=== PATIENT | male | born 1965 | race Caucasian/White ===

== ENCOUNTER 2020-03-15 14:28 | Inpatient (IN) | payer OTHER, SELFPAY ==
[2020-03-15 14:38] VITALS: BMI 25.8
[2020-03-15 14:43] VITALS: BP 135/74; PULSE 79; RESP 16; TEMP 36.8; O2SAT 96
--- NOTE | 2020-03-15 14:43 | ECG_ITS ---
[facility] Test Date: 2020-03-15 Pat Name: Isreal Sage Department: Room: Gender: Male System Configuration Specialist: : [id number] Requested By: Jeanie Mason Order Number: [id number] Wagoner MD: Gary Landin M.D. Measurements Intervals [place] Rate: 75 P: 12 SD: 142 QRS: 77 QRSD: 88 T: 70 QT: 363 QTc: 406 Interpretive Statements SINUS RHYTHM No previous ECG available for comparison Electronically Signed On 03-16-2020 19:56:34 CDT by Gary Landin M.D. [id number]
[2020-03-15 15:30] LABS: Amphetamines Screen Urine Positive (Negative); Barbiturates Screen Urine Negative (Negative); Benzodiazepines Screen Urine Negative (Negative); Cocaine Screen Urine Negative (Negative); Opiate Screen Urine Negative (Negative); PCP Screen Urine Negative (Negative); THC Screen Urine Negative (Negative)
[2020-03-15 15:33] LABS: Bilirubin Urine Neg (NEGATIVE); Blood Urine 2+ (Negative); Glucose Urine UA Norm (Normal); Ketones Urine Negative (Negative); Leukocyte Esterase Urine Negative (Negative); Nitrate Urine Negative (Negative); Protein Urine Neg (Negative); Urine Appearance Clear (CLEAR); Urine Color Yellow (Yellow); Urobilinogen Urine Norm (Negative); pH Urine 5 (5-7)
[2020-03-15 15:34] LABS: Bacteria Urine 1+; Mucus Urine 2+; RBC Urine 0-4 /hpf (0-2); Squamous Epithelial Cell Urine 0-4 (0-5)
[2020-03-15 15:35] LABS: Add Urine Culture? No; Calcium Oxalate Crystals Urine 0-4 /hpf; Hyaline Casts Urine 0-4
--- NOTE | 2020-03-15 15:59 | PC.NURSE ---
pt states now he thinks he is having suicidal thoughts no plan taken to room 9 undressed and sitter with pt
--- NOTE | 2020-03-15 16:08 | ED_ITS ---
HPI - Psych General: Chief Complaint: Psychiatric Symptoms Stated Complaint: mhe, detox Time Seen by Provider: 03/15/20 15:57 Source: patient Mode of arrival: ambulatory Limitations: no limitations History of Present Illness: HPI Narrative: Mr. Sage is a 54-year-old male comes in complaining of feeling suicidal. He states that he has a problem with methamphetamines and he needs help getting off. He has had thoughts about wanting to kill himself and thought of several different ways he can do so. He wants to go to our neuropsychiatric unit so he can get the help that he needs. Review of Systems Const: Denies: fever(s), chills, body aches, fatigue, malaise or diaphoresis Eyes: Denies: change in vision, blurry vision, blind spots, photophobia, eye discharge or eye redness ENMT: Denies: throat pain, odynophagia, hoarseness, swelling of lips/tongue, oral sores, ear or mastoid pain, ear discharge, change in hearing or nasal discharge Card: Denies: chest pain, palpitations, irregular heart rhythm, edema, lightheadedness, syncope, pre-syncope, dyspnea on exertion or orthopnea Resp: Denies: dyspnea, productive cough, non-productive cough, wheezing, hemoptysis or chest congestion GI: Denies: abdominal pain, nausea, vomiting, hematemesis, coffee ground emesis, heartburn, diarrhea, constipation, GI cramping, hematochezia or melena : Denies: flank pain, dysuria, urinary frequency, urinary urgency or hematuria Musc: Denies: neck pain, back pain, extremity pain, extremity swelling, joint pain, joint swelling, joint redness, joint warmth or joint stiffness Skin/Breast: Denies: rash, pruritus, erythema, skin tenderness or jaundice Neuro: Denies: headache(s), numbness in extremities, weakness in extremities, sensory changes, lack of coordination, difficulty walking, dizziness, vertigo, confusion, Slurred speech present or seizure-like activity Mustapha/Lymph: Denies: easy bruising, easy bleeding, petechiae, purpura or enlarged lymph nodes All/Imm: Denies: urticaria, throat swelling, tongue swelling, facial swelling or acute wheezing Physical Exam Const: COMMON NORMALS: no acute distress, patient oriented x3, no limitations, healthy appearing and well nourished GENERAL APPEARANCE: cooperative, well kempt and well developed HENMT: COMMON NORMALS: normocephalic, atraumatic, external ears normal, EAC's normal and Normal external nose present HEAD & SCALP: normal to inspection, normocephalic and atraumatic FACE & SINUS: normal facial exam and face symmetric NOSE: Normal external nose present and Normal nares present EXTERNAL EAR: Yes external ears normal EXTERNAL AUDITORY CANAL: EAC's normal MOUTH: Normal oral and palatal mucosa present, lip normal and tongue normal Eye: COMMON NORMALS: Equal, round and reactive pupils present and conjunctivae normal GENERAL EYE: appearance normal, both eyes and all related structures ALIGNMENT: Yes alignment normal PERIORBITAL: periorbital findings normal EYELID: eyelids normal CONJUNCTIVA: Yes conjunctivae normal SCLERA: sclerae normal PUPIL: Yes Equal, round and reactive pupils present Neck/C-Spine: COMMON NORMALS: full ROM, no lymphadenopathy, supple, no m eningeal signs and no JVD GENERAL: Yes normal visual inspection and Yes trachea midline Chest: COMMONS NORMALS: normal inspection of the chest and normal palpation of entire chest wall Resp: COMMON NORMALS: normal respiratory effort, No retractions and No use of accessory muscles EFFORT & INSPECTION: Yes able to speak in complete sentences and Yes symmetric chest movement AUSCULTATION: no crackles, no rales, no rhonchi and no wheezes Cardio: COMMON NORMALS: no JVD, regular rate, regular rhythm, S1 normal heart sound present and S2 normal heart sound present RATE: regular rate RHYTHM: regular rhythm HEART SOUNDS: S1 normal heart sound present, S2 normal heart sound present, no click, no gallops, no murmurs, no rubs and abnormal split S2 GI: COMMON NORMALS: Soft to palpation and No hepatosplenomegaly present PALPATION: Yes Soft to palpation, No Tenderness to palpation present (GI), No Guarding due to palpation present (GI), No Rigid due to palpation, Yes No hepatosplenomegaly present, No Hernia present, No Palpable mass present and No Pulsatile mass present : COMMON NORMALS: Yes no CVA tenderness BLADDER/KIDNEY EXAM: Yes no CVA tenderness Back/Pelvis: COMMON NORMALS: no CVA tenderness, thoracic and lumbar spine normal to inspection, no thoracic nor lumbar tenderness and thoraco-lumbar ROM normal Extremity: COMMON NORMALS: normal to inspection, full ROM, capillary refill normal, no joint enlargement, no clubbing, cyanosis or edema and no calf tend erness Neuro: COMMON NORMALS: patient oriented x3, CN's II-XII intact bilaterally, moves all extremities, no focal motor deficits and no sensory deficits noted MENINGEAL SIGNS: Yes no meningeal signs SPEECH: speech normal Psych: COMMON NORMALS: mental status grossly normal, Normal thought process present, cooperative, normal affect, speech normal and activity/motor behavior normal APPEARANCE: Yes well kempt SPEECH: Yes normal speech THOUGHT PROCESS: Normal thought process present Skin: COMMON NORMALS: no rashes or lesions noted, turgor normal, no jaundice, no petechiae and no mottling GENERAL SKIN EXAM: no rashes or lesions noted and turgor normal MDM - Psych MDM Narrative: Medical decision making narrative: The case was reviewed with Dr. Nichols, he agrees to admit the patient for suicidal ideation. Lab Data: Attestation: I reviewed the patient's lab results. Labs: Lab Results 03/15/20 03/15/20 Range/Units 14:56 14:56 Urine Color Yellow (Yellow) Urine Appearance Clear (CLEAR) Urine pH 5 (5-7) Ur Specific Gravit y 1.030 (1.005-1.030) Urine Protein Neg (Negative) Urine Glucose (UA) Norm (Normal) Urine Ketones Negative (Negative) Urine Blood 2+ H (Negative) Urine Nitrate Negative (Negative) Urine Bilirubin Neg (NEGATIVE) Urine Urobilinogen Norm (Negative) mg/dL Ur Leukocyte Roz ase Negative (Negative) Urine RBC 0-4 H (0-2) /hpf Urine WBC 5-10 H (0-5) /hpf Ur Squamous Epith Cells 0-4 H (0-5) Calcium Oxalate Cr ystal 0-4 H /hpf Urine Bacteria 1+ H (NONE) Hyaline Casts 0-4 H Urine Mucus 2+ Urine Opiates Scre en Negative (Negative) ng/mL Ur Barbiturates Sc reen Negative (Negative) ng/mL Ur Phencyclidine S crn Negative (Negative) ng/mL Ur Amphetamines Sc reen Positive H (Negative) ng/mL U Benzodiazepines Scrn Negative (Negative) ng/mL Urine Cocaine Scre en Negative (Negative) ng/mL U Marijuana (THC) Screen Negative (Negative) ng/mL EKG Data^: EKG 1: Attestation: I personally reviewed and interpreted this EKG as follows: EKG interpretation date: 03/15/20 EKG interpretation time: 16:16 Interpretation: NSR @ 75, NAD Discharge Plan Discharge Patient Disposition: Admitted As Inpatient Clinical Impression: Suicidal ideation Condition: Stable Coding Level of Care Code ED Instructor Military Science for Chg Fwd Exam Comprehensive
[2020-03-15 16:16] LABS: Basophils # 0.1 10^3/uL (0.0-0.1); Basophils % 0.7 %; Eosinophils # 0.1 10^3/uL (0.0-0.8); Eosinophils % 0.9 %; Hematocrit 45.2 % (42.0-52.0); Hemoglobin 14.7 g/dL (11.7-16.6); Lymphocytes # 1.1 10^3/uL (0.8-4.8); Lymphocytes % 12.1 %; Mean Corpuscular HGB Conc 32.5 g/dL (30.0-36.0); Mean Corpuscular Hemoglobin 29.8 pg (28.0-34.0); Mean Corpuscular Volume 91.7 fL (80-94); Mean Platelet Volume 10.3 fL (7.4-10.4); Monocytes # 0.7 10^3/uL (0.2-0.9); Neutrophils # 7.1 10^3/uL (1.8-7.7); Neutrophils % 78.1 %; Nucleated Red Blood Cells % 0 %; Platelet Count 321 10^3/cmm (130-400); Red Blood Count 4.93 10^6/uL (4.1-5.3); Red Cell Distribution Width 13.8 % (12.1-15.1)
[2020-03-15 16:25] LABS: Ketone (Acetest) Serum Negative (Negative)
[2020-03-15 16:27] LABS: INR 0.95 (0.8-1.2)
[2020-03-15] MEDS: LORazepam 2 mg Tablet PO (16:28)
[2020-03-15 16:41] LABS: Lithium 0.1 mmol/L (0.6-1.2)
[2020-03-15 17:02] LABS: Acetaminophen < 5.0 ug/mL (10-30); Alanine Aminotransferase 21 U/L (0-41); Albumin Level 4.8 g/dL (3.5-5.2); Alcohol Level < 10 mg/dL (0-10); Alkaline Phosphatase 86 IU/L (40-130); Anion Gap 14.6 (5-19); Aspartate Amino Transferase 28 U/L (0-40); Blood Urea Nitrogen 19 mg/dL (6-20); Carbon Dioxide 29 mmol/L (22-29); Chloride 102 mmol/L (98-107); Globulin 2.7 g/dL (1.3-4.6); Glomerular Filtration Rate 69.2 mL/min (90-130); Glucose 80 mg/dL (65-115); Magnesium 2.1 mg/dL (1.7-2.3); Osmolality Calculated 287 mOsm/kg (285-295); Potassium 4.6 mmol/L (3.5-5.1); Salicylate < 0.3 mg/dL (3-10); Sodium 141 mmol/L (136-145); Thyroid Stimulating Hormone 0.53 uIU/mL (0.27-4.20); Total Bilirubin 0.5 mg/dL (0.15-1.2); Total Protein 7.5 g/dL (6.6-8.7)
[2020-03-15 17:03] LABS: Carbamazepine Tegretol < 2.0 ug/mL (4.0-12.0); Phenytoin Dilantin < 0.8 ug/mL (10-20); Valproic Acid Level < 2.8 ug/mL (50-100)
[2020-03-15 17:04] LABS: Creatine Phosphokinase 322 U/L (39-308)
[2020-03-15 17:21] VITALS: BP 140/80; PULSE 85; O2SAT 97
[2020-03-15 17:51] VITALS: BP 141/84; PULSE 72; RESP 18; TEMP 36.8; O2SAT 96
[2020-03-15 20:29] VITALS: BP 108/71; PULSE 62; RESP 15; TEMP 36.6; O2SAT 99
[2020-03-16 06:00] VITALS: BP 117/73; PULSE 51; RESP 17; TEMP 36.4; O2SAT 97
--- NOTE | 2020-03-16 10:14 | P.HP_ITS ---
Providers/Chief Complaint Admitting Physician: Vishal Nichols MD Chief Complaint: mhe, detox HPI NPU History of Present Illness Isreal Sage is a 54 year old male who presented to the emergency room reporting that his methamphetamine addiction has gotten out of control, and that if he does not do something soon, he is going to . He does not want to but he was feeling like that was one of his only options. He wanted to be admitted and was seeking help with his depression and addiction. He was admitted to the neuro-psychiatric unit for definitive treatment of those issues. He reports he has no psychiatric history. His was struggling with addiction for much of their marriage and he was a street laced, never got into trouble kind of vaelrio. He says that she was spiking his food or drinks or whatever with methamphetamine and at one point he acknowledged that he had been feeling good, and she told him that she had been doing that. He did not feel addicted and he felt better so he started messing around with it. This was at about age 49. He reports he had energy and felt vibrant. He said a couple months later in the month it had taken ahold of him, but he has been on and off of the meth since then. He reports that he will have a couple months of sobriety and then fall back in. He has figured all this time over the last five years that he would be able to kick it on his own, but he has not. He says that he is retired from the [employer] and had never been in trouble. He says he dips maybe one and a half cans a week. He has alcohol very rarely. He does not smoke marijuana. He does not mess with cocaine, opiates, or any other drugs. He has never been to a rehab, never had a DUI. He reports that he has never made a suicide attempt, but he says that he was contemplating and planning how to kill himself because he says he just cannot live like this. He cannot believe that his life has been reduced to chasing this. He reports that he is depressed, feels hopeless, helpless, and worthless but he feels like most of that is just the fact that he cannot stop. We discussed the risks, benefits, and alternatives of getting a trial of Naltrexone and he understood and agreed to proceed as is documented in this note. PSYCHIATRIC HISTORY: As above. SUBSTANCE ABUSE HISTORY: As above. FAMILY HISTORY: He denies mental health or addiction issues on either side of the family or any suicide attempts or completions on either side. DEVELOPMENTAL HISTORY: He denies any issues with his mom?s or delivery of him. He reports he learned to walk and talk and met his developmental milestones on time. He reports that he did not need speech therapy, learning support, emotional support, or special education classes. PSYCHOSOCIAL HISTORY: He reports his mother and father were together when he was born, and they had him and his younger brother together. He reports that when he was 5 years old, they . His mom has not had any children with anyone else. His dad has one or two kids, but he reports he is tight-lipped about it. He reports his grandparents often raised him because his mom was working hard, and his dad was in the and was in and out. At age 5 he was gone. He reports his childhood was unremarkable and denied any emotional, physical, or sexual abuse. He graduated from high school. He has a Bachelor of Science, a Master?s degree, and has some of his doctorate course work done. He is a heterosexual. His longest relationship was seven years. He has been four times, three times. He has a 20 year old son in [place], whom he does not have much contact with, if at all. He joined the [employer] when he was 15 and did at least twenty years. He was at 16 [employer] and had his final ranking was an E7. He believes in God, but he has been struggling with his lutheran recently. 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 He lives in a house with his . LEGAL HISTORY: He reports he has been in half-way a couple of times, longest time was six months, and that was mostly for revocations. MEDICAL HISTORY: He reports that he has some right lower sided pain and he does have a history of spontaneous pneumothoraces. Meds NPU Home Medications Medication Instructions Recorded Confirmed Last Taken Type No Known Home Medications 03/15/20 03/15/20 Unknown History Allergies Allergy/AdvReac Type Severity Reaction Status Date / Time No Known Allergies Allergy Verified 03/15/20 14:45 Mental Status Exam MSE Comments: This is a well-nourished, well-developed, white male, with adequate dress, grooming, and eye contact. No abnormal movements except for mild psychomotor retardation. Cooperative with exam in no acute distress. Speech was decreased rate and volume. Mood described as feeling desperate; affect congruent. Thought process, organized. Thought content: patient denied any suicidal or homicidal ideation, there were no delusions reported or noted, patient denied any auditory or visual hallucinations. Attention, concentration, and memory appear intact but were not formally tested. He is alert and oriented times three. Insight and judgment are good. Vitals/I&O/Wt Last Vital Signs Temp 97.6 F 03/16/20 06:00 Pulse 51 L 03/16/20 06:00 Resp 17 03/16/20 06:00 BP 117/73 03/16/20 06:00 Pulse Ox 97 03/16/20 06:00 Data NPU : 03/15/20 16:00 03/15/20 16:00 A&P Assessment and plan (1) Suicidal ideation: Status: Acute (2) Methamphetamine dependence: Status: Acute (3) Depression: Status: Acute Additional A&P Information This is a 54 year old, white male, with no significant history of mental health, but a history of worsening methamphetamine addiction over the last five years with no genetic loading for mental health or addiction issues, who presents desperately wanting to get engaged in treatment and was open to starting some medication to maybe help with the craving. Continue current medication except: Start Revia 50 mg po qam. Encourage individual, group, and milieu therapy. Continue q 15-minute checks for safety. Assist patient in finding sober living treatment at the highest level, to which he is willing to commit. Involuntary Hold Information 96 Hour Hold: 96 Hour Involuntary Admission: No Attestations NPU Medical Necessity Statement*: Inpatient hospitalization is medically necessary, and the clinically appropriate intervention at this time. We will monitor medications and make changes as indicated. He will be in the hospital for over two midnights. Likely length of stay three to five days. Coding Level of Care Code Acute Windows Desktop Engineer for Lex Mcclure Diagnoses Suicidal ideation R45.851 Methamphetamine dependence F15.20 Depression F32.9
[2020-03-16 14:00] VITALS: BP 117/69; PULSE 60; RESP 18; TEMP 37.1
[2020-03-16 21:50] VITALS: BP 131/84; PULSE 83; RESP 20; TEMP 36.3; O2SAT 96
[2020-03-17 06:00] VITALS: BP 142/89; PULSE 62; RESP 18; TEMP 36.7; O2SAT 99
[2020-03-17] MEDS: naltrexone hcl 50 mg Tablet PO (08:47)
--- NOTE | 2020-03-17 11:14 | P.PN_ITS ---
Subjective NPU Subjective: Interval history: Patient verbalizes feelings of hopelessness and being overwhelmed. He is convinced that if he cannot get off of the methamphetamine, he may be in a situation where he might consider suicide. However he made no's statements of intent or plan or even active thoughts of suicide at this time. He is fearful of the future. He has poor hedonic capacity. Sleep and appetite are good. He is irritable. He feels hopeless and overwhelmed. He is sad and blue on a daily basis. We discussed his history. He has never been treated for mental illness. He has never been on inpatient unit. He does not feel that he has been clinically depressed in the past. Mental Status Exam MSE Comments: Mental Status Exam: The patient is an alert interpersonally engaged male appearing approximately his stated age. He is wearing spectacles that have been repaired on the right side. There are no tics or tremors. There is no attention to internal stimuli. He is believed to be a reliable informant as information provided is consistent with that in the chart and internally consistent. Appearance: hygiene is fair; no gross neurological deficits., gait is unremarkab le; AIMS=0 Speech: Speech is of normal rate and rhythm and easily understood. Thought processes: Thought processes are abstract. Judgment is adequate for safety. Associations: intact Psychotic processes: There is no indication of guarding or paranoia. There is no attention to the internal stimuli. Auditory and visual hallucinations are denied. Judgment: Insight is good. Problem solving skills are adequate for safety. Orientation: The patient is oriented to person, place time and situation. Memory: no deficits noted in immediate, intermediate, or remote spheres. Attention: The patient is alert and interpersonally engaged. Language: Verbalizations are coherent. Fund of knowledge: Fund of knowledge is adequate. Affect/Mood: Affect is consistent with a depressed mood. He denied suicidal ideation Affective range is constricted Psychosis: perception unimpaired except through cognitive distortion; reality testing intact. Vitals/I&O/Wt Last Vital Signs Temp 98.1 F 03/17/20 06:00 Pulse 62 03/17/20 06:00 Resp 18 03/17/20 06:00 BP 142/89 03/17/20 06:00 Pulse Ox 99 03/17/20 06:00 Weight last 48 hrs Weight 79.379 kg Weight 81.647 kg Data NPU : 03/15/20 16:00 03/15/20 16:00 A&P Additional A&P Information Due to the psychiatric conditions and treatment listed in the Assessment and Plan - the patient requires continued hospitalization. Will provide a safe and therapeutic environment for patient.. Will continue inpatient treatment to allow for medication adjustment and monitor ing. Will continue q15 min safety checks. Hospital day #3: The intent at this time is to continue his naltrexone to assist with craving for his methamphetamine habit. He agreed to consider a trial of an antidepressant and will discuss tomorrow. Monitor patient's mood, sleep, appetite, and behavior closely. Encourage patient to participate in individual and group therapeutic sessions on the [place]. Estimated length of stay 5 days The expected benefits and potential side effects of patient's psychiatric medications were discussed with the patient. The patient understands and consents to treatment. CRITERIA FOR DISCHARGE: stable on medications and no longer an imminent threat to self or others Involuntary Hold Information 96 Hour Hold: 96 Hour Involuntary Admission: No Attestations NPU Medical Necessity Statement*: Patient will remain in the hospital another 2-3 nights to assess medication efficacy and tolerance. Coding Level of Care Code Acute Dental Hygiene Administrative Assistant for Lex Mcclure
[2020-03-17 14:00] VITALS: BP 120/73; PULSE 68; RESP 20; TEMP 36.6; O2SAT 98
[2020-03-17 20:13] VITALS: BP 112/69; PULSE 55; RESP 17; TEMP 36.6; O2SAT 97
[2020-03-18 06:00] VITALS: BP 124/74; PULSE 75; RESP 16; TEMP 37; O2SAT 96
[2020-03-18] MEDS: naltrexone hcl 50 mg Tablet PO (09:01)
--- NOTE | 2020-03-18 12:57 | P.PN_ITS ---
Subjective NPU Subjective: Interval history: Patient continues to obsess over his perceived lack of options in terms of treatment and the fact that he will eventually return to methamphetamine use if he does not receive the treatment he desires. He was receptive to education regarding potential benefits of antidepressant medications and agreed to an initial trial. Mental Status Exam MSE Comments: Mental Status Exam: The patient is an alert interpersonally engaged male appearing approximately his stated age. He is wearing spectacles that have been repaired on the right side. There are no tics or tremors. There is no attention to internal stimuli. He is believed to be a reliable informant as information provided is consistent with that in the chart and internally consistent. Appearance: hygiene is fair; no gross neurological deficits., gait is unremarkable; AIMS=0 Speech: Speech is of normal rate and rhythm and easily understood. Thought processes: Thought processes are abstract. Judgment is adequate for safety. Associations: intact Psychotic processes: There is no indication of guarding or paranoia. There is no attention to the internal stimuli. Auditory and visual hallucinations are denied. Judgment: Insight is good. Problem solving skills are adequate for safety. Orientation: The patient is oriented to person, place time and situation. Memory: no deficits noted in immediate, intermediate, or remote spheres. Attention: The patient is alert and interpersonally engaged. Language: Verbalizations are coherent. Fund of knowledge: Fund of knowledge is adequate. Affect/Mood: Affect is consistent with a depressed mood. He denied suicidal ideation Affective range is constricted Psychosis: perception unimpaired except through cognitive distortion; reality testing intact. Cognition: Patient Appearance: Appropriate Level of Consciousness: Awake, Alert, Appropriate and Follows Commands Patient Cognition Impaired: No Ability to Follow Directions: Fair Patient Orientation (long list): Person, Place and Time Comprehension Ability: No Impairment Hallucination Type: None Delusion Description: Not Present Thought Process: Appropriate Affect: Affect Description: Appropriate Depressive Symptoms: Difficulty Sleeping Behavior: Patient Behavior: Appropriate Speech Pattern: Clear Vitals/I&O/Wt Last Vital Signs Temp 98.6 F 03/18/20 06:00 Pulse 75 03/18/20 06:00 Resp 16 03/18/20 06:00 BP 124/74 03/18/20 06:00 Pulse Ox 96 03/18/20 06:00 Data NPU : 03/15/20 16:00 03/15/20 16:00 A&P Additional A&P Information Due to the psychiatric conditions and treatment listed in the Assessment and Plan - the patient requires continued hospitalization. Will provide a safe and therapeutic environment for patient.. Will continue inpatient treatment to allow for medication adjustment and monitoring. Will continue q15 min safety checks. Hospital day #3: The intent at this time is to continue his naltrexone to assist with craving for his methamphetamine habit. He agreed to consider a trial of an antidepressant and will discuss tomorrow. Hospital day #4:Patient continues to obsess over his perceived lack of options in terms of treatment and the fact that he will eventually return to methamphetamine use if he does not receive the treatment he desires. He was re ceptive to education regarding potential benefits of antidepressant medications and agreed to an initial trial. Plan: Initiate Wellbutrin SR 100 mg daily. Potential benefits and side effects of this medication were discussed in detail as well as time course of expected response to the medication. Contingency plan for unexpected or intolerable side effects as discontinuation. Monitor patient's mood, sleep, appetite, and behavior closely. Encourage patient to participate in individual and group therapeutic sessions on the [place]. Estimated length of stay 5 days The expected benefits and potential side effects of patient's psychiatric medications were discussed with the patient. The patient understands and consents to treatment. CRITERIA FOR DISCHARGE: stable on medications and no longer an imminent threat to self or others Involuntary Hold Information 96 Hour Hold: 96 Hour Involuntary Admission: No Attestations NPU Medical Necessity Statement*: Patient will remain in the hospital another 4-5 nights until medication efficacy and tolerance can be established. Coding Level of Care Code Acute Welder/Fabricator for Lex Mcclure
[2020-03-18] MEDS: buPROPion SR (12 HR) 100 mg Tablet PO (13:26)
[2020-03-18 14:00] VITALS: BP 131/85; PULSE 57; RESP 20; TEMP 36.5; O2SAT 96
[2020-03-18 20:02] VITALS: BP 123/77; PULSE 58; RESP 14; TEMP 36.7; O2SAT 97
[2020-03-19 06:00] VITALS: BP 129/80; PULSE 57; RESP 16; TEMP 36.5; O2SAT 94
[2020-03-19] MEDS: naltrexone hcl 50 mg Tablet PO (08:26)
[2020-03-19] MEDS: buPROPion SR (12 HR) 100 mg Tablet PO (08:26)
--- NOTE | 2020-03-19 12:48 | PM.NPN ---
Subjective NPU Subjective: Interval history: Patient continues to be despondent over lack of options for substance abuse treatment programs. He is reporting complete loss of appetite beginning yesterday evening. It is unclear which medication if any is the cause of this. We explored options. Patient agrees with the plan chosen below. Mental Status Exam MSE Comments: This is a well-nourished, well-developed, white male, with adequate dress, grooming, and eye contact. No abnormal movements except for mild psychomotor retardation. Cooperative with exam in no acute distress. Speech was decreased rate and volume. Mood described as feeling desperate; affect congruent. Thought process, organized. Thought content: patient denied any suicidal or homicidal ideation, there were no delusions reported or noted, patient denied any auditory or visual hallucinations. Attention, concentration, and memory appear intact but were not formally tested. He is alert and oriented times three. Insight and judgment are good. Cognition: Patient Appearance: Appropriate Level of Consciousness: Awake, Alert, Appropriate and Follows Commands Patient Cognition Impaired: No Ability to Follow Directions: Fair Patient Orientation (long list): Person, Place and Time Comprehension Ability: No Impairment Hallucination Type: None Delusion Description: Not Present Thought Process: Appropriate Affect: Affect Description: Flat Depressive Symptoms: Difficulty Sleeping Behavior: Patient Behavior: Appropriate Speech Pattern: Appropriate Vitals/I&O/Wt Last Vital Signs Temp 97.7 F 03/19/20 06:00 Pulse 57 L 03/19/20 06:00 Resp 16 03/19/20 06:00 BP 129/80 03/19/20 06:00 Pulse Ox 94 03/19/20 06:00 Data NPU : 03/15/20 16:00 03/15/20 16:00 A&P Assessment and plan (1) Suicidal ideation: Status: Acute (2) Methamphetamine dependence: Status: Acute (3) Depression: Status: Acute Additional A&P Information This is a 54 year old, white male, with no significant history of mental health, but a history of worsening methamphetamine addiction over the last five years with no genetic loading for mental health or addiction issues, who presents desperately wanting to get engaged in treatment and was open to starting some medication to maybe help with the craving. Continue current medication except: Start Revia 50 mg po qam. Encourage individual, group, and milieu therapy. Continue q 15-minute checks for safety. Assist patient in finding sober living treatment at the highest level, to which he is willing to commit. Hospital day #4:Patient continues to be despondent over lack of options for substance abuse treatment programs. He is reporting complete loss of appetite beginning yesterday evening. It is unclear which medication if any is the cause of this. We explored options. Patient agrees with the plan chosen below. Plan: Continue Wellbutrin 100 mg daily and naltrexone 50 mg daily we will continue to monitor nutritional intake and sleep. Involuntary Hold Information 96 Hour Hold: 96 Hour Involuntary Admission: No Attestations NPU Medical Necessity Statement*: Patient to remain in hospital another 2-3 nights until placement can be acquired. Coding Level of Care Code Acute Metal Cut Off Saw Tender for Lex Mcclure Diagnoses Suicidal ideation R45.851 Methamphetamine dependence F15.20 Depression F32.9
[2020-03-19 14:00] VITALS: BP 135/88; PULSE 60; RESP 20; TEMP 36.5; O2SAT 98
[2020-03-19 22:00] VITALS: BP 105/65; PULSE 56; RESP 17; TEMP 36.7; O2SAT 95
[2020-03-20 06:00] VITALS: BP 125/76; PULSE 62; RESP 17; TEMP 36.9; O2SAT 96
[2020-03-20] MEDS: buPROPion SR (12 HR) 100 mg Tablet PO (08:51)
[2020-03-20] MEDS: naltrexone hcl 50 mg Tablet PO (08:51)
[2020-03-20 13:50] VITALS: BP 126/69; PULSE 54; RESP 18; TEMP 36.9; O2SAT 97
--- NOTE | 2020-03-20 14:07 | PM.NPN ---
Subjective NPU Subjective: Interval history: Patient is found destination for placement and is arranging transportation for tomorrow. He is comfortable with his current medication regimen and agrees to the plan below. Mental Status Exam MSE Comments: This is a well-nourished, well-developed, white male, with adequate dress, grooming, and eye contact. No abnormal movements except for mild psychomotor retardation. Cooperative with exam in no acute distress. Speech was decreased rate and volume. Mood described as feeling desperate; affect congruent. Thought process, organized. Thought content: patient denied any suicidal or homicidal ideation, there were no delusions reported or noted, patient denied any auditory or visual hallucinations. Attention, concentration, and memory appear intact but were not formally tested. He is alert and oriented times three. Insight and judgment are good. Cognition: Patient Appearance: Appropriate Level of Consciousness: Awake, Alert, Appropriate and Follows Commands Patient Cognition Impaired: No Ability to Follow Directions: Fair Patient Orientation (long list): Person, Place and Time Comprehension Ability: No Impairment Hallucination Type: None Delusion Description: Not Present Thought Process: Appropriate Affect: Affect Description: Appropriate Depressive Symptoms: Difficulty Sleeping Behavior: Patient Behavior: Appropriate Speech Pattern: Clear Vitals/I&O/Wt Last Vital Signs Temp 98.5 F 03/20/20 13:50 Pulse 54 L 03/20/20 13:50 Resp 18 03/20/20 13:50 BP 126/69 03/20/20 13:50 Pulse Ox 97 03/20/20 13:50 Data NPU : 03/15/20 16:00 03/15/20 16:00 A&P Assessment and plan (1) Suicidal ideation: Status: Acute (2) Methamphetamine dependence: Status: Acute (3) Depression: Status: Acute Additional A&P Information This is a 54 year old, white male, with no significant history of mental health, but a history of worsening methamphetamine addiction over the last five years with no genetic loading for mental health or addiction issues, who presents desperately wanting to get engaged in treatment and was open to starting some medication to maybe help with the craving. Continue current medication except: Start Revia 50 mg po qam. Encourage individual, group, and milieu therapy. Continue q 15-minute checks for safety. Assist patient in finding sober living treatment at the highest level, to which he is willing to commit. Hospital day #4:Patient continues to be despondent over lack of options for substance abuse treatment programs. He is reporting complete loss of appetite beginning yesterday evening. It is unclear which medication if any is the cause of this. We explored options. Patient agrees with the plan chosen below. Plan: Continue Wellbutrin 100 mg daily and naltrexone 50 mg daily we will continue to monitor nutritional intake and sleep. Hospital day #5:Patient has found destination for placement and is arranging transportation for tomorrow. He is comfortable with his current medication regimen and agrees to the plan below. He will continue Wellbutrin SR 100 mg daily and naltrexone 50 mg daily. Involuntary Hold Information 96 Hour Hold: 96 Hour Involuntary Admission: No Attestations NPU Medical Necessity Statement*: Patient will remain in the hospital 1 more night for discharge planning and the further assessment of medication side effects. Coding Level of Care Code Acute Ramp Service Man for Lex Mcclure Diagnoses Suicidal ideation R45.851 Methamphetamine dependence F15.20 Depression F32.9
[2020-03-20] MEDS: nicotine 2 mg Gum BUCCAL ×2 (15:03→17:41)
--- NOTE | 2020-03-20 17:16 | PC.NURSE ---
RECEIVED CONFIRMATION FROM JOSE IN LAB VIA TELEPHONE THAT PATIENT COVID 19 TEST IS NEGATIVE.
[2020-03-20 22:00] VITALS: BP 109/58; PULSE 51; RESP 18; TEMP 36.8; O2SAT 96
[2020-03-21 06:00] VITALS: BP 119/74; PULSE 78; RESP 18; TEMP 36.6; O2SAT 96
[2020-03-21] MEDS: buPROPion SR (12 HR) 100 mg Tablet PO (08:15)
[2020-03-21] MEDS: naltrexone hcl 50 mg Tablet PO (08:15)
--- NOTE | 2020-03-21 10:17 | P.DS_ITS ---
Diagnoses at Discharge Discharge Diagnosis (1) Suicidal ideation: Status: Resolved (2) Methamphetamine dependence: Status: Chronic (3) Depression: Status: Acute Reason for Visit Reason for Visit: mhe, detox Brief History: History of Present Illness Isreal Sage is a 54 year old male who presented to the emergency room reporting that his methamphetamine addiction has gotten out of control, and that if he does not do something soon, he is going to . He does not want to but he was feeling like that was one of his only options. He wanted to be admitted and was seeking help with his depression and addiction. He was admitted to the neuro-psychiatric unit for definitive treatment of those issues. He reports he has no psychiatric history. His was struggling with addiction for much of their marriage and he was a street laced, never got into trouble kind of valerio. He says that she was spiking his food or drinks or whatever with methamphetamine and at one point he acknowledged that he had been feeling good, and she told him that she had been doing that. He did not feel addicted and he felt better so he started messing around with it. This was at about age 49. He reports he had energy and felt vibrant. He said a couple months later in the month it had taken ahold of him, but he has been on and off of the meth since then. He reports that he will have a couple months of sobriety and then fall back in. He has figured all this time over the last five years that he would be able to kick it on his own, but he has not. He says that he is retired from the [employer] and had never been in trouble. He says he dips maybe one and a half cans a week. He has alcohol very rarely. He does not smoke marijuana. He does not mess with cocaine, opiates, or any other drugs. He has never been to a rehab, never had a DUI. He reports that he has never made a suicide attempt, but he says that he was contemplating and planning how to kill himself because he says he just cannot live like this. He cannot believe that his life has been reduced to chasing this. He reports that he is depressed, feels hopeless, helpless, and worthless but he feels like most of that is just the fact that he cannot stop. We discussed the risks, benefits, and alternatives of getting a trial of Naltrexone and he understood and agreed to proceed as is documented in this note. PSYCHIATRIC HISTORY: As above. SUBSTANCE ABUSE HISTORY: As above. FAMILY HISTORY: He denies mental health or addiction issues on either side of the family or any suicide attempts or completions on either side. DEVELOPMENTAL HISTORY: He denies any issues with his mom?s or delivery of him. He reports he learned to walk and talk and met his developmental milestones on time. He reports that he did not need speech therapy, learning support, emotional support, or special education classes. PSYCHOSOCIAL HISTORY: He reports his mother and father were together when he was born, and they had him and his younger brother together. He reports that when he was 5 years old, they . His mom has not had any children with anyone else. His dad has one or two kids, but he reports he is tight-lipped about it. He reports his grandparents often raised him because his mom was working hard, and his dad was in the and was in and out. At age 5 he was gone. He reports his childhood was unremarkable and denied any emotional, physical, or sexual abuse. He graduated from high school. He has a Bachelor of Science, a Master?s degree, and has some of his doctorate course work done. He is a heterosexual. His longest relationship was seven years. He has been four times, three times. He has a 20 year old son in [place], whom he does not have much contact with, if at all. He joined the [employer] when he was 15 and did at least twenty years. He was at 16 [place] and had his final ranking was an E7. He bel ieves in God, but he has been struggling with his nondenominational recently. 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 He lives in a house with his . LEGAL HISTORY: He reports he has been in [facility] a couple of times, longest time was six months, and that was mostly for revocations. Hospital Course Discharge Summary Assessment and plan (1) Suicidal ideation: Status: Acute (2) Methamphetamine dependence: Status: Acute (3) Depression: Status: Acute Additional A&P Information This is a 54 year old, white male, with no significant history of mental health, but a history of worsening methamphetamine addiction over the last five years w ith no genetic loading for mental health or addiction issues, who presents desperately wanting to get engaged in treatment and was open to starting some medication to maybe help with the craving. Continue current medication except: Start Revia 50 mg po qam. Encourage individual, group, and milieu therapy. Continue q 15-minute checks for safety. Assist patient in finding sober living treatment at the highest level, to which he is willing to commit. Hospital day #4:Patient continues to be despondent over lack of options for substance abuse treatment programs. He is reporting complete loss of appetite beginning yesterday evening. It is unclear which medication if any is the cause of this. We explored options. Patient agrees with the plan chosen below. Plan: Continue Wellbutrin 100 mg daily and naltrexone 50 mg daily we will continue to monitor nutritional intake and sleep. Hospital day #5:Patient has found destination for placement and is arranging transportation for tomorrow. He is comfortable with his current medication regimen and agrees to the plan below. He will continue Wellbutrin SR 100 mg daily and naltrexone 50 mg daily. Involuntary Hold Information 96 Hour Hold: 96 Hour Involuntary Admission: No Mental Status Exam MSE Comments: Discharge Mental Status Exam: Appearance: hygiene is good; no gross neurological deficits., gait is unremarkable; AIMS=0 Speech: Speech is of normal rate and rhythm and easily understood. Thought processes: Thought processes are abstract. Judgment is adequate for safety. Associations: intact Psychotic processes: There is no indication of guarding or paranoia. There is no attention to the internal stimuli. Auditory and visual hallucinations are denied. Judgment: Insight is fair. Problem solving skills are adequate for safety. Orientation: The patient is oriented to person, place time and situation. Memory: no deficits noted in immediate, intermediate, or remote spheres. Attention: The patient is alert and interpersonally engaged. Language: Verbalizations are coherent. Fund of knowledge: Fund of knowledge is adequate. Affect/Mood: Affect is consistent with a euthymic mood. denied suicidal ideation Affective range is appropriate. Psychosis: perception unimpaired except through cognitive distortion; reality testing intact. Discharge Data Data Completed and Pending: Labs from last 24 hours 03/19/20 15:58 Nasal/Oral COVID-1 9 PCR See comment Vitals: Last Vital Signs Temp 97.8 F 03/21/20 06:00 Pulse 78 03/21/20 06:00 Resp 18 03/21/20 06:00 BP 119/74 03/21/20 06:00 Pulse Ox 96 03/21/20 06:00 Discharge Plan Discharge Patient Disposition: Home, Self-Care Condition: Stable Prescriptions: New trazodone 50 mg Tablet 50 mg PO BEDTIME PRN (Reason: Sleep) Qty: 10 RF: 4 naltrexone 50 mg Tablet 50 mg PO DAILY Qty: 30 RF: 4 bupropion HCl 100 mg Tablet Sustained-Release 12 Hr 100 mg PO DAILY Qty: 30 RF: 4 Discharge Orders: Discharge Order (Routine); Ordered 03/21/20 Ordered By: Mark Frye Referrals: [facility]. [Other] (Arrangements were made with supplier quality manager Gretchen Olivier for you to enter the program. Negative COVID-19 test results were sent to her.) [facility] [Other] ([facility] is a grassroots, non-profit organization dedicated to providing compassionate programs that support and service individuals and family members impacted by anxiety, depression, post-traumatic stress, personality, mood and behavioral disorders, and schizophrenia.) [facility] [place] [Other] (Outpatient mental health provider for [facility]-offer services for mental health and substance abuse. ) Activity Restrictions/Additional Instructions: Some resources for outpatient care such as the [facility] and [facility] were listed. [facility] may be able to better link you with services using your VA benefits. You should anger control counselor with them before making any appointments to see what they would recommend. Discharge Attestations NPU Time Spent in Discharge Care*: greater than 30 min Coding Level of Care Code Acute Mat Gauger for g Fwd Diagnoses Suicidal ideation R45.851 Methamphetamine dependence F15.20 Depression F32.9
[2020-03-21 11:17] VITALS: BP 119/74; PULSE 78; RESP 18; TEMP 36.6; O2SAT 96
== END 2020-03-21 12:05 | disposition home or self-care (01) | DRG 881 ==
LOC: ER 16:10 → NP 16:57
PROVIDERS: Emergency Medicine; Psychiatry & Neurology Psychiatry; Admitting Provider Psychiatry & Neurology Psychiatry; Visit Provider Psychiatry & Neurology Psychiatry
DX: F32.9 Major depressive disorder, single episode, unspecified (principal); R45.851 Suicidal ideations; F15.229 Other stimulant dependence with intoxication, unspecified; F17.220 Nicotine dependence, chewing tobacco, uncomplicated
CPT/HCPCS: 12345; 36415; 80053; 80156; 80164; 80178; 80185; 80306; 80307; 81001; 82009; 82550; 83735; 84443; 85025; 85610; 87635; 93005; 99284

== ENCOUNTER → 2021-06-25 11:08 | Outpatient (BNVA) | payer OTHER, SELFPAY | PROVIDERS: Visit Provider Internal Medicine Critical Care Medicine | DX: R06.02 Shortness of breath (principal) | CPT/HCPCS: 87635 ==

== ENCOUNTER 2021-06-30 06:52 | Outpatient (CLI) | payer OTHER, SELFPAY ==
[2021-06-30 07:21] VITALS: BMI 27.2
--- NOTE | 2021-06-30 07:21 | ECG_ITS ---
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 Interpretive Statements NAME OF STUDY: LEXISCAN SESTAMIBI STRESS TEST INDICATION: Exertional cp, PROCEDURE: At the baseline, the EKG revealed normal sinus rhythm with a poor R wave progression. The baseline blood pressure was 131/78 mm Hg with a heart rate of 68 beats/min. Lexiscan was infused over a period of 20 seconds. A total of 0.4 milligrams of Lexiscan was infused. The stress phase was continued for a total of 5 minutes. Heart rate at the end of the stress phase was 79 with a blood pressure 137/82. The EKG at the peak infusion revealed some nonspecific T wave changes. Sestamibi was injected 20 seconds after the Lexiscan infusion. Blood pressure at the end of the recovery phase was 137/82 with a heart rate of 79 per minute. CONCLUSION: 1. No significant EKG changes with the LexiScan infusion 2. No LexiScan induced chest pain or cardiac arrhythmia 3. Normal blood pressure and heart rate response 4. Sestamibi/sestamibi perfusion scan pending; see separate report. Electronically Signed On 07-02-2021 23:24:20 CDT by Gary Landin M.D. [email or web address]
--- NOTE | 2021-06-30 07:21 | NMCV_ITS ---
NM tomas perf SPECT r/s* [id number] Isreal Sage Age: 55 Gender: M : 1965 Exam Date: 06/30/2021 08:12 Ordering Phys: Michael Baldwin MD Technologist: ERNESTO Carpio Exam Location: [facility] Indications: CHEST PAIN STRESS TEST Please see separate stress test report in [facility] for full findings IMAGE PROTOCOL Rest/Stress 1 Lexiscan Day Radiopharmaceutical Dose (mCi) Administration Site Administered by Rest: Tc-99m 10.7 IV ERNESTO Cramer Sestamibi Stress:Tc-99m 32.6 IV ERNESTO Cramer Sestamibi Rest: 30-Jun-2021 60 Discovery 630 Stress: 30-Jun-2021 30 Discovery 630 0.4mg Lexiscan. Images obtained in supine and prone position. SPECT RESULTS Technical Quality: Excellent Raw Data Analysis: Normal Image Corrections: No attenuation or motion correction applied Summed Stress Score: 2 Summed Rest Score: 1 Summed Difference Score: 2 PERFUSION FINDINGS Small to moderate area of moderately decreased tracer uptake was noted in the basal, mid and apical inferior wall region. Some reversibility was noted in the basal inferior wall region. FUNCTIONAL RESULTS (calculated via Gated SPECT) Stress Image LV EF (%): 71 Stress EDV (mL):120 TID: 1.1 Stress ESV (mL):35 FUNCTIONAL FINDINGS: Segmental wall motion analysis revealing no gross wall motion normalities. IMPRESSIONS 1. Myocardial perfusion imaging revealing small to moderate area of persistent decreased tracer uptake in the anterior wall region, with some reversibility, suggesting myocardial scarring with a small area of sachin-infarction ischemia in the distribution of the right coronary artery. 2. Normal LV ejection fraction of 31%. 3. LV wall motion analysis revealing no gross wall motion abnormalities. 4. Normal LV volume. No similar previous studies are available for combined Dr Gary Landin MD [facility] (Electronically Signed) Final Date: 30 June 2021 17:29 S
[2021-06-30] MEDS: regadenoson 0.4 Mg/5 ml Syringe IVP (09:06)
[2021-06-30 09:08] VITALS: BP 137/82; PULSE 79
--- NOTE | 2021-06-30 10:58 | PFTS_ITS ---
Date of Study:06/30/21 Date of Dictation: MECHANICS: Forced vital capacity (FVC) is reduced. Forced expiratory volume in one second (FEV1) is reduced. FEV1/FVC is normal. FLOW VOLUME LOOP: Reduced flow at all lung volumes without any scooping. LUNG VOLUMES: Total lung capacity (TLC) is reduced. Residual volume (RV) is normal. DIFFUSING CAPACITY FOR CARBON MONOXIDE: Normal. INTERPRETATION: The postbronchodilator spirometry is consistent with moderate restriction. There is some improvement in postbronchodilator FEV1 but not to reach steady state of significance. The lung volume is consistent with mild restriction. Gas exchange (DLCO) is normal. MTDD
== END 2021-06-30 06:53 | disposition home or self-care (01) ==
PROVIDERS: PCP Family Medicine; Visit Provider Internal Medicine Critical Care Medicine
DX: R07.9 Chest pain, unspecified (principal)
CPT/HCPCS: 78452; 93017; 94060; 94726; 94729; A9500; J2785

== ENCOUNTER 2021-08-05 08:42 | Outpatient (CLI) | payer OTHER, SELFPAY ==
[2021-08-05 09:09] LABS: Basophils # 0.1 10^3/uL (0.0-0.1); Basophils % 0.7 %; Eosinophils # 0.4 10^3/uL (0.0-0.8); Eosinophils % 4.6 %; Hematocrit 46.1 % (42.0-52.0); Hemoglobin 15.8 g/dL (11.7-16.6); Lymphocytes # 1.1 10^3/uL (0.8-4.8); Lymphocytes % 11.7 %; Mean Corpuscular HGB Conc 34.3 g/dL (30.0-36.0); Mean Corpuscular Hemoglobin 31.2 pg (28.0-34.0); Mean Corpuscular Volume 90.9 fl (80-94); Mean Platelet Volume 10.5 fL (7.4-10.4); Monocytes # 0.9 10^3/uL (0.2-0.9); Monocytes % 9.4 %; Neutrophils # 6.62 10^3/uL (1.8-7.7); Neutrophils % 73.3 %; Nucleated Red Blood Cells % 0 %; Platelet Count 262 10^3/cmm (130-400); Red Blood Count 5.07 10^6/uL (4.1-5.3); Red Cell Distribution Width 13.3 % (12.1-15.1)
[2021-08-05 09:32] LABS: Anion Gap 14.8 (5-19); Blood Urea Nitrogen 15 mg/dL (6-20); Calcium 8.9 mg/dL (8.5-10.5); Carbon Dioxide 27 mmol/L (22-29); Chloride 100 mmol/L (98-107); Glucose 100 mg/dL (65-115); Osmolality Calculated 285 mOsm/kg (285-295); Potassium 4.8 mmol/L (3.5-5.1); Sodium 137 mmol/L (136-145)
== END 2021-08-05 08:43 | disposition home or self-care (01) ==
LOC: LAB 08:44
PROVIDERS: PCP Family Medicine; Visit Provider Internal Medicine Cardiovascular Disease
DX: R93.1 Abnormal findings on diagnostic imaging of heart and coronary circulation (principal)
CPT/HCPCS: 80048; 85025; 86850; 86900

== ENCOUNTER 2021-08-10 08:43 | Outpatient (CLI) | payer OTHER, SELFPAY ==
--- NOTE | 2021-08-10 09:00 | CT_ITS ---
WS: [id number] CT CHEST CT-HIGH RESOLUTION, NONCONTRAST. HISTORY: Interstitial lung disease. Technique: High-resolution chest CT is performed in inspiration, expiration, supine and prone positio marii. All CT scans at [facility] use at least one of these dose optimization techniques: automated exposure control; mA and/or kV adjustment per patient size (includes targeted exams where dose is mat ched to clinical indication); or iterative reconstruction. DLP: 953.2 mGycm COMPARISON: None. Findings: Bilateral but asymmetric interstitial thickening. There are more prominent areas of pleural thickening, atelectasis and interstitial thickening throughout the RIGHT lung as compared to the LEF T lung. There are partially calcified nodules which are probably from prior granulomatous disease. Th e largest is in the anterior medial RIGHT upper lobe measuring 11 mm. There are a few scattered areas of groundglass attenuation, most significant throughout the RIGHT lower lobe. On expiration there is volume loss but only minimal but is symmetric. There is no honeycombing or bronchiectasis. Minimal i f any air trapping. No paraseptal emphysematous changes. No focal pulmonary nodules suspicious for ne oplasm. No mediastinal or hilar adenopathy. The appearance of the trachea is normal. The esophagus is not dil ated. Main pulmonary artery is minimally prominent at 3.0 cm. No pleural plaques. There is very slight elevation of volume loss in the RIGHT thorax. CT/CT chest wo con [id number] Impression: 1. Pulmonary findings are not typical for UIP. There is no honeycombing or tra ction bronchiectasis. No cyst formation. 2. Mild volume loss in the RIGHT thorax with pleural thickening and areas of c hronic atelectasis and a few calcified nodules. No pleural plaques. Lung diseas e is asymmetric and greater on the RIGHT than the LEFT. Consider fibrotic hyper sensitivity pneumonia and nontypical etiologies of unilateral interstitial lung disease.
== END 2021-08-10 08:44 | disposition home or self-care (01) ==
PROVIDERS: PCP Family Medicine; Visit Provider Internal Medicine Critical Care Medicine
DX: J98.4 Other disorders of lung (principal)
CPT/HCPCS: 71250

== ENCOUNTER 2021-08-11 08:09 | Observation (INO) | payer OTHER, SELFPAY ==
[2021-08-11] VITALS (22 sets, daily range): BP systolic 96–128; BP diastolic 58–85; PULSE 52–65; RESP 12–21; TEMP 36.6; O2SAT 100; BMI 28.4
--- NOTE | 2021-08-11 06:00 | XACV_ITS ---
Ht: 178 cm Wt: 90 kg BSA: 2.12 m2 Gender: Male : 1965 Any Known Allergies: Other Exam Priority: Routine Procedure(s): Procedure Description: Diagnostic procedure Procedure Description: Left Heart Catheterization Procedure Description: Left ventriculography Procedure Description: Coronary Angiography Mushtaq AMOS; Diagnostic Cath Status: Elective Diagnostic Findings * Coronary angiography shows right dominance. * The left main is a medium caliber vessel which appears to have around 20% ostial narrowing. * The left and descending artery is a medium caliber vessel which appears to wrap around the LV apex. The proximal LAD was found to have around 20 to 30% diffuse irregular narrowing. Around 30% smooth tubular narrowing was noted at the mid and distal segment as well . No other significant stenotic lesions. * The circumflex artery is a medium caliber vessel which was found to have minimal ostial narrowing. The artery appears to bifurcate distally all of the bifurcation branches was found to have around 50% ostial narrowing. No other significant stenotic lesions were noted. * The intermedius artery is a medium caliber vessel with minimal intimal irregularities. No significant stenotic lesions were noted. * The right coronary artery is a medium caliber vessel which was found to have minimal intimal irregularities in the mid segment. No significant stenotic lesions were noted the ostium of the PDA branch was found to have around 40% narrowing. Conclusions 1. 55-year-old white male presenting with complaints of chest pain and shortness of breath. Abnormal myocardial perfusion imaging revealing small areas of reversible defect. Because of the patient's increasing episodes of chest pains and shortness of breath, in order to further evaluate the coronary status, a cardiac catheterization was recommended. He underwent left heart catheterization with left and right coronary angiogram and LV angiogram today. The findings are as follows. 2. Around 20% ostial left main stenosis. Mild to moderate diffuse disease the other vessels. Normal LV ejection fraction 55%. Features of the left and the diastolic function with an LVEDP of 26 mmHg. Recommendations * Continue current medical management and risk factor modification. Diagnostic RX Recommendation: medical therapy and/or counseling LV EDP: 26 mmHg Ventriculography Ejection Fraction: 55.0 % Left Ventriculography Findings: * The LV gram was performed the GODOY projection. The LV cavity appears to be normal size. There was no filling defects. No severe mitral valve prolapse or mitral regurgitation. Pressures Phase:Rest AO : 97 / 60 ( 72 ) @ 5:32:00 AM 77 / 36 ( 53 ) @ 5:34:00 AM 81 / 44 ( 59 ) @ 5:36:00 AM 82 / 44 ( 60 ) @ 5:36:00 AM 111 / 70 ( 91 ) @ 5:39:00 AM 118 / 63 ( 89 ) @ 5:39:00 AM 112 / 83 ( 97 ) @ 5:42:00 AM 131 / 78 ( 103 ) @ 5:51:00 AM 134 / 78 ( 104 ) @ 5:51:00 AM LV : 122 / 3 / 18 @ 5:38:00 AM 119 / 3 / 17 @ 5:39:00 AM 132 / -1 / 26 @ 5:50:00 AM 136 / 0 / 26 @ 5:51:00 AM 137 / 0 / 28 @ 5:51:00 AM Valves Phase:DefaultPhase AV : 5.0 @ 8:04:15 AM 5.0 @ 8:04:15 AM AV Mean Gradient: 9.0 @ 8:04:15 AM 9.0 @ 8:04:15 AM Clinical Evaluation EBL: 5mL-10mL Procedural Details Procedure Consent Obtained. Current Diagnosis : Chest Pain. Pre-Procedure Time Out. Identified patient by full name and date of as verbalized by the patient/guarantor. Does the consent match the physician's order: Yes. Accurate & Complete Informed Consent: Yes. Inpatient/Outpatient History & Physical on Chart: Yes. If H&P is completed, is and addenduem needed: No; If yes, is the addendum complete: N/A. Visualize and Verify Site with Patient/Guarantor: N/A. Relevant Radiology Images available: Yes. Pre-op teaching completed and patient verbalized understanding. The risks, benefits, and alternatives of sedation and/or procedure were discussed by physician. The patient agrees to continue. Procedure started. [facility] Clinical Fraility Score: 3: Managing Well. Forepart Rounder Indications: Worsening Angina. Chest Pain Symptom Assessment: Typical Angina Symptoms. Correct patient, site and procedure confirmed by cath team. Current diagnosis: Chest Pain. PERRLA. Strong, equal hand radiology ct technologist bilaterally. Lungs clear x 5 lobes. IV Site on Arrival: 20 gauge in the right anticubital. IV Fluids: 0.9% NaCl at KVO. 0 mL infused prior to labor relations consultant. Pre Procedural Pulses: right dorsalis pedis was 1+. Pre Procedural Pulses: left dorsalis pedis was 3+. Pre Procedural Pulses: right posterior tibial was 2+. Pre Procedural Pulses: left posterior tibial was 2+. Pre Procedural Pulses: bilateral radial was 3+. Oxygen started at 2liters/min via nasal canula. right groin was prepped with chloroprep then draped in the usual sterile fashion. right radial was prepped with chloroprep then draped in the usual sterile fashion. Baseline sample Acquired. HR: 73 BPM. Physician notified. Physician arrived. Physician scrubbed in. Immediate Pre-Procedure Time Out. Correct Patient: Yes; Correct Procedure: Yes; Correct Site: Yes; Correct Patient Position: Yes; Correct Supplies: Yes; Dried Flammable Prep: Yes; Blood Products Available: N/A;. Lidocaine 1% infiltrated to the right radial. Arterial access obtained. A 5 martiniquais Malachi catheter in over wire. Multiple views taken of left coronary artery. Catheter redirected to the RCA. Catheter removed over the exchange wire. A 5 martiniquais JR4 catheter in over wire. EDP Sample taken: LV 122/3,18; HR: 76 BPM; SpO2: 94%. Pullback taken: LV 119/3,17; AO 111/70(91); Mean: 8mmHg, Peak to Peak: 8mmHg, SEP: 23sec/min; HR: 76 BPM; SpO2: 94%. Multiple views taken of right coronary artery. Physician review of cine films. Dr. Albarado called to review films. Catheter removed over the exchange wire. A 5 martiniquais Angled Pig catheter in over wire. EDP Sample taken: LV 132/-2,26; HR: 72 BPM; SpO2: 97%. LV gram performed in GODOY @ 10 mL/second for a total of 30 mL. EDP Sample taken: LV 136/-1,26; HR: 71 BPM; SpO2: 96%. Pullback taken: LV 137/0,28; AO 131/78(103); Mean: 9mmHg, Peak to Peak: 5mmHg, SEP: 21sec/min; HR: 70 BPM; SpO2: 97%. Catheter removed over the exchange wire. Physician scrubbed out. Side port of sheath attached to Normal Saline flush at KVO to maintain patency. A TR Band was successful obtaining hemostatsis at the Right Radial artery insertion site. Post Procedure: Pulses reassessed and unchanged. PERRLA. Strong, equal hand radiology ct technologist bilaterally. No VTE prophylaxis required. Medication's Wasted: Lidocaine 1% = 18 mL. Medication's Wasted: Nitro = 49.8 mg. Medication's Wasted: Heparin = 1000 units. Total IV fluids: 287 mL. Contrast type used: Visipaque 320 mgI/mL, 500 mL bottle. Complications: None. Estimated blood loss: 5mL-10mL. Procedure completed. Patient transferred by wheelchair to CPRU. Vital chart was stopped. Access Site Site: Right Radial artery Sheath Size: 6 Fr Hemostasis Method: TR Band Hemostasis Success: Successful Procedure Medications Start: 7:14 AM Stop: 7:14 AM Medication: Versed Amount: 1 mg Route: I.V. Start: 7:14 AM Stop: 7:14 AM Medication: Fentanyl Amount: 50 mcg Start: 7:26 AM Stop: 7:26 AM Medication: Versed 1 mg and Fentanyl 25 mcg Amount: 1 Route: I.V. Start: 7:27 AM Stop: 7:27 AM Medication: Nitrogylcerin Amount: 200 mcg Route: I.A. Start: 7:27 AM Stop: 7:27 AM Medication: Verapamil Amount: 5 mg Route: I.A. Start: 7:28 AM Stop: 7:28 AM Medication: 0.9% Saline Amount: 250 ml Route: I.V. bolus Start: 7:30 AM Stop: 7:30 AM Medication: Heparin Amount: 5000 units Start: 7:51 AM Stop: 7:51 AM Medication: Fentanyl Amount: 25 mcg I, the attending physician, have reviewed and verified all procedure medications. Yes, all medications given per verbal order History/Risk Factors Hypertension: Yes Dyslipidemia: No Peripheral Arterial Disease (PAD): No Myocardial Infarction (IN): No Obesity: No Renal Disease: No Tobacco Use: Current/Recent(w/in 1 year) Prior Interventions PCI: No CABG: No Valve Surgery: No Report Signatures Finalized by Dr Gary Landin MD [facility] on 08/12/2021 06:28 AM
[2021-08-11] MEDS: diphenhydrAMINE 50 mg Capsule PO (06:42)
--- NOTE | 2021-08-11 07:15 | W.PM.OPSUD ---
Surgery/Procedure H&P Update DATE OF PROCEDURE: August 11, 2021 DATE H&P PERFORMED: 07/28/21 H&P UPDATE INFORMATION: I have reviewed H&P completed within last 30 days, I have examined patient prior to procedure and No changes to prior documentation PREOP DIAGNOSIS: ASHD PRIMARY INDICATION FOR PROCEDURE: chest pain/SOB/Abnormal MPI PLANNED PROCEDURE: Operation Date: 08/11/21 07:00 Proposed Procedures p Cardiac Catheterization(Left) - Gary Landin MD PATIENT REASSESSED PRIOR TO SEDATION, WITH NO CHANGE NOTED: Yes PHYSICAL EXAM: alert, oriented x 3, clear to auscultation bilaterally and regular rate & rhythm AIRWAY EVAL/ANESTHESIA PLAN: normal airway, ASA III, Monitored Anesthesia, Local Anesthesia, Risks, benefits & alternatives of sedation and/or procedure discussed and Patient agrees to continue as planned
== END 2021-08-11 13:34 | disposition home or self-care (01) ==
LOC: CSU 08:10
PROVIDERS: Admitting Provider Internal Medicine Cardiovascular Disease; PCP Family Medicine; Visit Provider Internal Medicine Cardiovascular Disease
DX: I25.10 Atherosclerotic heart disease of native coronary artery without angina pectoris (principal); I10 Essential (primary) hypertension
CPT/HCPCS: 36415; 93452; C1769; C1887; C1894; G0378; J1644; J2250; J3010; J3490; J7030; Q0163; Q9967

== ENCOUNTER → 2021-08-19 09:45 | Outpatient (BNVA) | payer OTHER, SELFPAY | PROVIDERS: PCP Family Medicine; Visit Provider Nurse Practitioner Family | DX: I25.10 Atherosclerotic heart disease of native coronary artery without angina pectoris (principal) | CPT/HCPCS: 80048 ==

== ENCOUNTER 2021-10-01 06:00 | Outpatient (RCR) | payer OTHER, SELFPAY | END 2021-10-12 23:59 | disposition home or self-care (01) | LOC: MPT 06:00 | PROVIDERS: PCP Family Medicine; Referring Provider Family Medicine; Visit Provider Family Medicine | DX: R52 Pain, unspecified (principal); M54.59 Other low back pain | CPT/HCPCS: 97110; 97162 ==

== ENCOUNTER → 2021-10-29 12:12 | Outpatient (BNVA) | payer OTHER, SELFPAY | PROVIDERS: PCP Family Medicine; Referring Provider Family Medicine; Visit Provider Anesthesiology Pain Medicine | DX: M54.50 Low back pain, unspecified (principal); F17.220 Nicotine dependence, chewing tobacco, uncomplicated | CPT/HCPCS: 99204 ==

== ENCOUNTER → 2021-11-30 09:17 | Outpatient (BNVA) | payer OTHER, SELFPAY | PROVIDERS: PCP Family Medicine; Visit Provider Anesthesiology Pain Medicine | DX: M54.50 Low back pain, unspecified (principal); F19.10 Other psychoactive substance abuse, uncomplicated; Z87.891 Personal history of nicotine dependence | CPT/HCPCS: 99214 ==

== ENCOUNTER 2022-01-05 12:03 | Outpatient (CLI) | payer OTHER, SELFPAY ==
--- NOTE | 2022-01-05 13:00 | MR_ITS ---
WS: [id number] MRI LUMBAR SPINE NONCONTRAST TECHNIQUE: Sagittal T1, T2 and STIR imaging. Axial T1 and T2 imaging. CLINICAL INFORMATION: M48.062 - Spinal stenosis, lumbar region with neurogenic ... COMPARISON: None. FINDINGS: Normal lumbar alignment. No acute compression. No high-grade central canal stenosis. L1-L2: Normal. L2-L3: No significant disc bulging. Mild facet arthropathy. Spinal canal and foramen are patent. L3-L4: Mild annular bulging. Slight narrowing of the RIGHT subarticular recess. Mild RIGHT and no sig nificant LEFT foraminal narrowing. Mild facet arthropathy. L4-L5: Mild annular bulging.LEFT eccentric disc bulging with a small LEFT foraminal protrusion result s in mild LEFT foraminal narrowing. Slight contact far exiting LEFT L4 nerve root. RIGHT foramen is patent. Mild facet arthropathy. L5-S1: Mild disc bulging with osteophytic ridging. Spinal canal is patent. Mild LEFT foraminal narrow ing. Moderate facet arthropathy. Small RIGHT renal cysts MR/MR lumbar spine wo con* [id number] IMPRESSION: 1. No acute compression. No high-grade central canal stenosis. 2. Slight retrolisthesis L3 on L4 with mild central canal stenosis and slight impingement traversing RIGHT L4 nerve root. Mild RIGHT L3-L4 foraminal narrowin g. 3. Mild LEFT L4-L5 foraminal narrowing with a tiny LEFT foraminal protrusion. 4. Moderate facet arthropathy L5-S1.
== END 2022-01-05 12:04 | disposition home or self-care (01) ==
LOC: RAD 12:03
PROVIDERS: PCP Family Medicine; Visit Provider Anesthesiology Pain Medicine
DX: M48.062 Spinal stenosis, lumbar region with neurogenic claudication (principal)
CPT/HCPCS: 72148

== ENCOUNTER → 2022-01-11 09:13 | Outpatient (BNVA) | payer OTHER, SELFPAY | PROVIDERS: PCP Family Medicine; Visit Provider Anesthesiology Pain Medicine | DX: M51.16 Intervertebral disc disorders with radiculopathy, lumbar region (principal); M47.816 Spondylosis without myelopathy or radiculopathy, lumbar region; M79.604 Pain in right leg; M79.605 Pain in left leg; Z87.891 Personal history of nicotine dependence; F19.10 Other psychoactive substance abuse, uncomplicated | CPT/HCPCS: 99214 ==

== ENCOUNTER → 2022-01-19 13:01 | Outpatient (BNVA) | payer OTHER, SELFPAY | PROVIDERS: PCP Family Medicine; Visit Provider Anesthesiology Pain Medicine | DX: M54.16 Radiculopathy, lumbar region (principal); Z87.891 Personal history of nicotine dependence | CPT/HCPCS: 64483; 64484; J1100; J3490 ==

== ENCOUNTER → 2022-01-21 09:40 | Outpatient (BNVA) | payer OTHER, SELFPAY | PROVIDERS: PCP Family Medicine; Visit Provider Anesthesiology Pain Medicine | DX: M51.16 Intervertebral disc disorders with radiculopathy, lumbar region (principal); M47.816 Spondylosis without myelopathy or radiculopathy, lumbar region; M79.604 Pain in right leg; M79.605 Pain in left leg; Z87.891 Personal history of nicotine dependence | CPT/HCPCS: 99213; 99214 ==

== ENCOUNTER → 2022-01-27 10:25 | Outpatient (BNVA) | payer OTHER, SELFPAY | PROVIDERS: PCP Family Medicine; Visit Provider Internal Medicine Cardiovascular Disease | DX: I25.10 Atherosclerotic heart disease of native coronary artery without angina pectoris (principal); R94.39 Abnormal result of other cardiovascular function study; I10 Essential (primary) hypertension; R06.02 Shortness of breath; E78.5 Hyperlipidemia, unspecified; Z87.891 Personal history of nicotine dependence | CPT/HCPCS: 99214 ==

== ENCOUNTER → 2022-02-02 10:25 | Outpatient (BNVA) | payer OTHER, SELFPAY | PROVIDERS: PCP Family Medicine; Visit Provider Anesthesiology Pain Medicine | DX: M51.16 Intervertebral disc disorders with radiculopathy, lumbar region (principal); M47.816 Spondylosis without myelopathy or radiculopathy, lumbar region; Z87.891 Personal history of nicotine dependence; F19.10 Other psychoactive substance abuse, uncomplicated | CPT/HCPCS: 99214 ==

== ENCOUNTER → 2022-02-17 13:39 | Outpatient (BNVA) | payer OTHER, SELFPAY | PROVIDERS: PCP Family Medicine; Visit Provider Anesthesiology Pain Medicine | DX: Z87.891 Personal history of nicotine dependence (principal); M47.816 Spondylosis without myelopathy or radiculopathy, lumbar region | CPT/HCPCS: 64493; 64494; 64495; J3490 ==

== ENCOUNTER → 2022-03-03 12:06 | Outpatient (BNVA) | payer OTHER, SELFPAY | PROVIDERS: PCP Family Medicine; Visit Provider Anesthesiology Pain Medicine | DX: Z87.891 Personal history of nicotine dependence (principal); M47.816 Spondylosis without myelopathy or radiculopathy, lumbar region | CPT/HCPCS: 64493; 64494; 64495 ==

== ENCOUNTER → 2022-03-24 08:14 | Outpatient (BNVA) | payer OTHER, SELFPAY | PROVIDERS: PCP Family Medicine; Visit Provider Anesthesiology Pain Medicine | DX: M51.16 Intervertebral disc disorders with radiculopathy, lumbar region (principal); M47.816 Spondylosis without myelopathy or radiculopathy, lumbar region; Z87.891 Personal history of nicotine dependence | CPT/HCPCS: 99214 ==

== ENCOUNTER → 2022-05-26 08:40 | Outpatient (BNVA) | payer OTHER, SELFPAY | PROVIDERS: PCP Family Medicine; Visit Provider Anesthesiology Pain Medicine | DX: M47.816 Spondylosis without myelopathy or radiculopathy, lumbar region (principal); M51.16 Intervertebral disc disorders with radiculopathy, lumbar region; F17.220 Nicotine dependence, chewing tobacco, uncomplicated | CPT/HCPCS: 99214 ==

== ENCOUNTER → 2022-06-23 09:10 | Outpatient (BNVA) | payer OTHER, SELFPAY | PROVIDERS: PCP Family Medicine; Visit Provider Anesthesiology Pain Medicine | DX: M51.16 Intervertebral disc disorders with radiculopathy, lumbar region (principal); M47.816 Spondylosis without myelopathy or radiculopathy, lumbar region; F17.210 Nicotine dependence, cigarettes, uncomplicated | CPT/HCPCS: 99214 ==

== ENCOUNTER → 2022-06-26 10:04 | Outpatient (BNVA) | payer OTHER, SELFPAY | PROVIDERS: PCP Family Medicine; Visit Provider Nurse Practitioner Family | DX: M25.512 Pain in left shoulder (principal) | CPT/HCPCS: 73030 ==

== ENCOUNTER → 2022-08-11 10:01 | Outpatient (BNVA) | payer OTHER, SELFPAY | PROVIDERS: PCP Family Medicine; Visit Provider Internal Medicine Cardiovascular Disease | DX: I25.10 Atherosclerotic heart disease of native coronary artery without angina pectoris (principal); I10 Essential (primary) hypertension; E78.5 Hyperlipidemia, unspecified; J98.4 Other disorders of lung; F17.220 Nicotine dependence, chewing tobacco, uncomplicated | CPT/HCPCS: 99214 ==

== ENCOUNTER → 2022-11-02 14:15 | Outpatient (BNVA) | payer OTHER, SELFPAY | PROVIDERS: PCP Family Medicine; Visit Provider Anesthesiology Pain Medicine | DX: M54.16 Radiculopathy, lumbar region (principal) | CPT/HCPCS: 62323; J1040 ==

== ENCOUNTER → 2022-11-18 08:42 | Outpatient (BNVA) | payer OTHER, SELFPAY | PROVIDERS: PCP Family Medicine; Visit Provider Anesthesiology Pain Medicine | DX: M51.16 Intervertebral disc disorders with radiculopathy, lumbar region (principal); M47.816 Spondylosis without myelopathy or radiculopathy, lumbar region; M79.604 Pain in right leg; M79.605 Pain in left leg | CPT/HCPCS: 99213 ==